=== PATIENT | female | born 1960 | race American Indian/Alaskan Native ===

== ENCOUNTER 2020-08-13 17:31 | Observation (INO) | payer MEDICARE ==
--- NOTE | 2020-08-13 18:13 | Emergency Department Report ---
HPI - General Chief Complaint: Dyspnea/Respdistress Time Seen by Provider: 08/13/20 17:56 - HPI HPI: This is a 60-year-old -[place] female presents to the emergency department via EMS from home with complaint of shortness of breath, a mixed dry and productive cough, some mild lower extremity swelling, that has been going on over the past few days but worsened this morning. The patient called EMS 3 different times but previously refused transfer to the emergency department. This afternoon, when EMS arrived, they found the patient to have a room air pulse ox of 85%. She was placed on a nonrebreather. Upon arrival here, the patient was 86% on room air and once again was placed on the nonrebreather. She has a history of COPD but is not oxygen dependent. She has a history of end- stage renal disease on peritoneal dialysis that she says she does 3 times daily. Her digital assistant is a Dr. Hawk. She has a history of hypertension and CHF. She is a former smoker. She has been using her nebulizer and inhaler at home without any relief. No recent travel or sick contacts at home. She denies any fever, chest pain, nausea, vomiting or diaphoresis. No known exposure to anyone with COVID-19. EMS gave her 2 mg of magnesium and 10 mg of Decadron in route. ED Past Medical Hx - Social History Smoking Status: Former Smoker Substance Use Type: None ED Review of Systems ROS: Stated complaint: SOB,RESP ISSUES Other details as noted in HPI Comment: All other systems reviewed and negative Constitutional: denies: chills, fever Eyes: denies: eye pain, vision change ENT: denies: ear pain, throat pain Respiratory: cough, shortness of breath Cardiovascular: edema. denies: chest pain Gastrointestinal: denies: abdominal pain, vomiting Genitourinary: denies: dysuria, discharge Musculoskeletal: denies: joint swelling, arthralgia Skin: denies: rash, lesions Neurological: denies: headache, weakness Physical Exam - Physical Exam Vital Signs: Vital Signs 08/13/20 17:54 Temperature 97.9 F Pulse Rate 106 H Respiratory 25 H Rate Blood Pressure 157/103 O2 Sat by Pulse 100 Oximetry Physical Exam: GENERAL: The patient is well-developed well-nourished. HENT: Normocephalic. Atraumatic. Patient has moist mucous membranes. EYES: Extraocular motions are intact. NECK: Supple. Trachea is midline. CHEST/LUNGS: There is mild wheezing throughout the chest. Mild tachypnea but no accessory muscle use. HEART/CARDIOVASCULAR: Regular. There is mild tachycardia. There is no murmur. ABDOMEN: Abdomen is soft, nontender. Patient has normal bowel sounds. SKIN: Skin is warm and dry. NEURO: The patient is awake, alert, and oriented. The patient is cooperative. The patient has no focal neurologic deficits. Normal speech. MUSCULOSKELETAL: There is no tenderness or deformity. ED Course Vital Signs 08/13/20 17:54 Temperature 97.9 F Pulse Rate 106 H Respiratory 25 H Rate Blood Pressure 157/103 O2 Sat by Pulse 100 Oximetry - Reevaluation(s) Reevaluation #1: 08/14/20 00:45 Lab Results 08/13/20 08/13/20 08/13/20 Range/Units 18:20 18:21 18:21 WBC 9.9 (4.5-11.0) K/mm3 RBC 4.00 (3.65-5.03) M/mm3 Hgb 12.4 (10.1-14.3) gm/dl Hct 38.2 (30.3-42.9) % MCV 96 (79-97) fl MCH 31 (28-32) pg MCHC 33 (30-34) % RDW 17.1 H (13.2-15.2) % Plt Count 212 (140-440) K/mm3 Lymph % (Auto) 5.2 L (13.4-35.0) % [place] % (Auto) 2.9 (0.0-7.3) % Eos % (Auto) 3.1 (0.0-4.3) % Baso % (Auto) 0.5 (0.0-1.8) % Lymph # (Auto) 0.5 L (1.2-5.4) K/mm3 [place] # (Auto) 0.3 (0.0-0.8) K/mm3 Eos # (Auto) 0.3 (0.0-0.4) K/mm3 Baso # (Auto) 0.0 (0.0-0.1) K/mm3 Seg Neutrophils % 88.3 H (40.0-70.0) % Seg Neutrophils # 8.8 H (1.8-7.7) K/mm3 PT (12.2-14.9) Sec. INR (0.87-1.13) D-Dimer (0-234) ng/mlDDU ABG pH 7.378 (7.350-7.450) pH Units ABG pCO2 41.4 mm Hg ABG pO2 64.4 L (80.0-90.0) mm Hg ABG HCO3 23.8 (20.0-26.0) mmol/L ABG O2 Saturation 92.5 L (95.0-99.0) % ABG O2 Content 15.7 (0.0-44) ABG Base Excess -1.3 (-2.0-3.0) mmol/L ABG Hemoglobin 12.3 (12.0-16.0) gm/dl ABG Carboxyhemoglobin 1.7 (0.0-5.0) % ABG Methemoglobin 0.5 (0.0-1.5) % Oxyhemoglobin 90.4 L (95.0-99.0) % FiO2 21 % Sodium 138 (137-145) mmol/L Potassium 3.8 (3.6-5.0) mmol/L Chloride 97.2 L (98-107) mmol/L Carbon Dioxide 23 (22-30) mmol/L Anion Gap 22 mmol/L BUN 54 H (7-17) mg/dL Creatinine 11.0 H (0.6-1.2) mg/dL Estimated GFR 4 ml/min BUN/Creatinine Ratio 5 % Glucose 153 H (65-100) mg/dL Calcium 7.8 L (8.4-10.2) mg/dL Total Bilirubin 0.30 (0.1-1.2) mg/dL AST 25 (5-40) units/L ALT 10 (7-56) units/L Alkaline Phosphatase 100 (35-129) units/L NT-Pro-B Natriuret Pep (0-900) pg/mL Total Protein 6.7 (6.3-8.2) g/dL Albumin 3.5 L (3.9-5) g/dL Albumin/Globulin Ratio 1.1 % 08/13/20 08/13/20 08/13/20 Range/Units 18:21 18:21 18:21 WBC (4.5-11.0) K/mm3 RBC (3.65-5.03) M/mm3 Hgb (10.1-14.3) gm/dl Hct (30.3-42.9) % MCV (79-97) fl MCH (28-32) pg MCHC (30-34) % RDW (13.2-15.2) % Plt Count (140-440) K/mm3 Lymph % (Auto) (13.4-35.0) % [place] % (Auto) (0.0-7.3) % Eos % (Auto) (0.0-4.3) % Baso % (Auto) (0.0-1.8) % Lymph # (Auto) (1.2-5.4) K/mm3 [place] # (Auto) (0.0-0.8) K/mm3 Eos # (Auto) (0.0-0.4) K/mm3 Baso # (Auto) (0.0-0.1) K/mm3 Seg Neutrophils % (40.0-70.0) % Seg Neutrophils # (1.8-7.7) K/mm3 PT 13.1 (12.2-14.9) Sec. INR 1.01 (0.87-1.13) D-Dimer 813.32 H (0-234) ng/mlDDU ABG pH (7.350-7.450) pH Units ABG pCO2 mm Hg ABG pO2 (80.0-90.0) mm Hg ABG HCO3 (20.0-26.0) mmol/L ABG O2 Saturation (95.0-99.0) % ABG O2 Content (0.0-44) ABG Base Excess (-2.0-3.0) mmol/L ABG Hemoglobin (12.0-16.0) gm/dl ABG Carboxyhemoglobin (0.0-5.0) % ABG Methemoglobin (0.0-1.5) % Oxyhemoglobin (95.0-99.0) % FiO2 % Sodium (137-145) mmol/L Potassium (3.6-5.0) mmol/L Chloride (98-107) mmol/L Carbon Dioxide (22-30) mmol/L Anion Gap mmol/L BUN (7-17) mg/dL Creatinine (0.6-1.2) mg/dL Estimated GFR ml/min BUN/Creatinine Ratio % Glucose (65-100) mg/dL Calcium (8.4-10.2) mg/dL Total Bilirubin (0.1-1.2) mg/dL AST (5-40) units/L ALT (7-56) units/L Alkaline Phosphatase (35-129) units/L NT-Pro-B Natriuret Pep 39072 H (0-900) pg/mL Total Protein (6.3-8.2) g/dL Albumin (3.9-5) g/dL Albumin/Globulin Ratio % - ABG Interpretation Ph: 7.378 PCO2: 41 PO2: 64 Bicarbonate: 25 Interpretation: other (hypoxemia) - Pulse Oximetry Interpretation Digit-Finger Initial Pulse Oximetry Readin O2 Sat by Pulse Oximetry: 86 Actions Taken: other (initially moved to NRB and later down to 24% (2L NC)) ED Medical Decision Making - Lab Data Result diagrams: 08/13/20 18:21 08/13/20 18:21 - EKG Data -: EKG Interpreted by Me EKG shows normal: sinus rhythm, axis, intervals (Slight prolongation of QTC), QRS complexes (LVH, Q waves to the anteroseptal leads), ST-T waves Rate: tachycardia (112 bpm) - EKG Data When compared to previous EKG there are: previous EKG unavailable Interpretation: other (Sinus tachycardia at 112 bpm, normal axis, slight prolongation of QTC, Q waves to the anteroseptal leads. No ST elevation myocardial infarction.) - Radiology Data Radiology results: report reviewed, image reviewed interpreted by me: Chest x-ray shows some hyperinflation of the lungs and flattening of the diaphragms. No obvious pneumonia, pleural effusions. No pneumothorax. Perfusion Scan HISTORY: SOB, elevated dimer. TECHNIQUE: Patient was given 5 mCi of technetium MAA. COMPARISON: Chest x-ray from today FINDINGS: Somewhat patchy radiotracer uptake but there is no large photopenic defect identified. There is perfusion in all lobes of the lungs. IMPRESSION: Maintained perfusion in all lobes of the lungs. - Medical Decision Making This patient presented to the emergency department with a complaint of a 1 to 2- day history of progressively worsening shortness of breath, a mixed dry and productive cough, and some lower extremity swelling. Patient was hypoxic for both EMS, as well as during our triage, while on room air. An ABG was done that shows some hypoxemia, but no significant hypercapnia or any acid-base disturbance. Chest x-ray appears consistent with her COPD, but does not show any obvious pneumonia, pleural effusions and there is no pneumothorax. The patient's labs shows renal insufficiency consistent with her end-stage renal disease on peritoneal dialysis. She has an elevated proBNP and troponin level, that is most likely secondary to her chronic kidney disease/ESRD. The patient had an elevated D-dimer level, and with her shortness of breath and hypoxia, a ventilation/perfusion scan was performed that came back showing maintain per fusion and low probability of a pulmonary embolism. The patient received magnesium and Solu-Medrol in route with EMS. She was given breathing treatments here, as well as antihypertensive medication. Patient was tested on room air multiple times and continues to desat. She is not oxygen dependent at home. She will be admitted to the hospital for further evaluation and treatment was accepted for admission by the hospitalist, Dr. Martinez. Critical Care Time: Yes Critical care time in (mins) excluding proc time.: 35 Critical care attestation.: If time is entered above; I have spent that time in minutes in the direct care of this critically ill patient, excluding procedure time. Critical care time was spent on this patient in doing her initial evaluation, multiple reevaluations, ordering and interpretation of labs and imaging, nebulizer treatments, supplemental oxygen for hypoxemia, discussion with the hospitalist service and multiple discussions with the patient herself. Critical Care Time: 35 minutes ED Disposition Clinical Impression: Dyspnea, COPD exacerbation, Hypoxemia, Hypertension Disposition: OP ADMIT IP TO THIS HOSP Is pt being admited?: Yes Condition: Serious Time of Disposition: 23:02
--- NOTE | 2020-08-13 18:19 | XRay Report ---
. XR chest 1V ap INDICATION / CLINICAL INFORMATION: SOB. COMPARISON: None available. FINDINGS: SUPPORT DEVICES: None. HEART /PULMONARY VASCULATURE: No significant abnormality. LUNGS / PLEURA: There is blunting of bilateral costophrenic sulci, may reflect trace pleural effusion s or pleural thickening/scarring. No focal airspace consolidation. No pneumothorax. ADDITIONAL FINDINGS: No significant additional findings. IMPRESSION: Trace bibasilar pleural fluid and/or pleural thickening/scarring. Otherwise, no acute chest process i dentified. Signer Name: Aditya Knapp MD Signed: 08/13/2020 6:15 PM Workstation Name: [id number]
[2020-08-13 18:36] LABS: ABG Base Excess -1.3 mmol/L (-2.0-3.0); ABG HCO3 23.8 mmol/L (20.0-26.0); ABG Methemoglobin 0.5 % (0.0-1.5); ABG Oxygen Saturation 92.5 % (95.0-99.0); ABG PCO2 41.4 mm Hg; ABG PH 7.378 pH Units (7.350-7.450); ABG PO2 64.4 mm Hg (80.0-90.0)
[2020-08-13 18:55] LABS: Basophils % (Auto) 0.5 % (0.0-1.8); Eosinophils # (Auto) 0.3 K/mm3 (0.0-0.4); Eosinophils % (Auto) 3.1 % (0.0-4.3); Hematocrit 38.2 % (30.3-42.9); Hemoglobin 12.4 gm/dl (10.1-14.3); Lymphocytes # (Auto) 0.5 K/mm3 (1.2-5.4); Lymphocytes % (Auto) 5.2 % (13.4-35.0); Mean Corpuscular HGB Conc 33 % (30-34); Mean Corpuscular Volume 96 fl (79-97); Monocytes # (Auto) 0.3 K/mm3 (0.0-0.8); Monocytes % (Auto) 2.9 % (0.0-7.3); Platelet Count 212 K/mm3 (140-440); Red Cell Distribution Width 17.1 % (13.2-15.2)
[2020-08-13 18:56] LABS: Albumin 3.5 g/dL (3.9-5); Calcium 7.8 mg/dL (8.4-10.2)
[2020-08-13 19:03] LABS: INR 1.01 (0.87-1.13)
[2020-08-13] MEDS ORDERED: hydrALAZINE 20 MG/1 ML INJ IV ONE (19:19)
[2020-08-13] MEDS ORDERED: IPRATROPIUM/ALBUTEROL SULFATE 3 ML AMPUL.NEB IH ONE (19:19)
[2020-08-13 21:01] LABS: Chol/HDL Ratio 3.2 %
--- NOTE | 2020-08-13 22:28 | Nuclear Medicine Report ---
Perfusion Scan HISTORY: SOB, elevated dimer. TECHNIQUE: Patient was given 5 mCi of technetium MAA. COMPARISON: Chest x-ray from today FINDINGS: Somewhat patchy radiotracer uptake but there is no large photopenic defect identified. The re is perfusion in all lobes of the lungs. IMPRESSION: Maintained perfusion in all lobes of the lungs. Signer Name: Reji Hidalgo MD Signed: 08/13/2020 10:23 PM Workstation Name: [id number]
[2020-08-13] MEDS ORDERED: ONDANSETRON 4 MG/2 ML INJ IV PRN (23:57)
[2020-08-13] MEDS ORDERED: ACETAMINOPHEN 325 MG TAB PO PRN (23:57)
--- NOTE | 2020-08-14 00:06 | History and Physical Report ---
History of Present Illness Date of examination: 08/13/20 Date of admission: 08/13/20 23:03 Chief complaint: Shortness of Breath History of present illness: 60-year-old female with known history of CHF, hypertension, COPD and end-stage renal disease on peritoneal dialysis at home presenting to the emergency room today complaining of shortness of breath, cough and lower extremity swelling. Symptoms were said to have started a few days ago but got worse this morning. Patient was brought into the emergency room by EMS and was found to be hypoxic with oxygen saturation of 85% on room air. She was subsequently placed on nonrebreather. She has been using her nebulizer at home without any significant improvement. Upon arrival in the emergency room patient's oxygen saturation was said to be about 86%. She is not on oxygen at home. Patient denies any fever or chills, no chest pain, no nausea vomiting, no headache or dizziness. She denies any recent travel and no sick contacts. She denies any contact with anyone with COVID-19. Patient follows up with her building carpenter -Dr. Hawk Work-up in the emergency room patient had an elevated D-dimer. Chest x-ray and CT angiogram were unremarkable. She has been admitted with COPD exacerbation with hypoxia. Past History Past Medical History: COPD, dialysis, ESRD Past Surgical History: Other (Peritoneal dialysis placement) Social history: smoking (Former smoker) Family history: no significant family history Medications and Allergies Allergies Allergy/AdvReac Type Severity Reaction Status Date / Time No Known Allergies Allergy Unverified 08/13/20 18:18 Active Meds: Active Medications Acetaminophen (Tylenol) 650 mg PO Q4H PRN PRN Reason: Pain MILD(1-3)/Fever >100.5/BAZZI Albuterol/Ipratropium (Duoneb *Not For Prn Use*) 1 ampul IH Q4HRT [facility] Bisacodyl (Dulcolax) 10 mg IA QDAY PRN PRN Reason: Constipation unrelieved by MOM Methylprednisolone Sodium Succinate (Solu-Medrol) 40 mg IV Q8HR [facility] Ondansetron HCl (Zofran) 4 mg IV Q8H PRN PRN Reason: Nausea And Vomiting Sodium Chloride (Sodium Chloride Flush Syringe 10 Ml) 10 ml IV BID EMM[facility] Sodium Chloride (Sodium Chloride Flush Syringe 10 Ml) 10 ml IV PRN PRN PRN Reason: LINE FLUSH Review of Systems Constitutional: no fever, no chills, no fatigue, no lethargy Breasts: no deferred Cardiovascular: no chest pain, no palpitations Respiratory: cough, shortness of breath, wheezing Gastrointestinal: no abdominal pain, no nausea, no vomiting, no diarrhea Genitourinary Female: pelvic pain Musculoskeletal: no neck pain, no low back pain Integumentary: no rash, no pruritis Neurological: no headaches, no confusion Exam - Constitutional Vitals: Temp Pulse Resp BP Pulse Ox 97.9 F 108 H 21 163/117 99 08/13/20 17:54 08/13/20 22:45 08/13/20 22:45 08/13/20 22:45 08/13/20 22:45 General appearance: Present: no acute distress, well-nourished, other (Mild Pallor) - EENT Eyes: Present: PERRL, EOM intact. Absent: scleral icterus ENT: hearing intact, clear oral mucosa, dentition normal - Neck Neck: Present: supple, normal ROM - Respiratory Respiratory effort: normal Respiratory: bilateral: wheezing - Cardiovascular Rhythm: regular Heart Sounds: Present: S1 & S2. Absent: gallop, systolic murmur, diastolic murmur, rub - Extremities Extremities: no ischemia, pulses intact, pulses symmetrical, No edema, normal temperature, normal color, Full ROM Peripheral Pulses: within normal limits - Abdominal General gastrointestinal: Present: soft, non-tender, non-distended, normal bowel sounds. Absent: mass - Integumentary Integumentary: Present: clear, warm, dry. Absent: rash - Musculoskeletal Musculoskeletal: strength equal bilaterally - Psychiatric Psychiatric: appropriate mood/affect, intact judgment & insight, memory intact, cooperative HEART Score - HEART Score Troponin: Troponin T 0.174 ng/mL (0.00-0.029) H* 08/13/20 Unknown Results - Labs CBC & Chem 7: 08/13/20 18:21 08/13/20 18:21 Labs: Abnormal lab results 08/13/20 08/13/20 08/13/20 Range/Units 18:20 18:21 18:21 RDW 17.1 H (13.2-15.2) % Lymph % (Auto) 5.2 L (13.4-35.0) % Lymph # (Auto) 0.5 L (1.2-5.4) K/mm3 Seg Neutrophils % 88.3 H (40.0-70.0) % Seg Neutrophils # 8.8 H (1.8-7.7) K/mm3 D-Dimer (0-234) ng/mlDDU ABG pO2 64.4 L (80.0-90.0) mm Hg ABG O2 Saturation 92.5 L (95.0-99.0) % Oxyhemoglobin 90.4 L (95.0-99.0) % Chloride 97.2 L (98-107) mmol/L BUN 54 H (7-17) mg/dL Creatinine 11.0 H (0.6-1.2) mg/dL Glucose 153 H (65-100) mg/dL Calcium 7.8 L (8.4-10.2) mg/dL Troponin T (0.00-0.029) ng/mL NT-Pro-B Natriuret Pep (0-900) pg/mL Albumin 3.5 L (3.9-5) g/dL Cholesterol (50-199) mg/dL LDL Cholesterol Direct (50-130) mg/dL HDL Cholesterol (40-59) mg/dL 08/13/20 08/13/20 08/13/20 Range/Units 18:21 18:21 Unknown RDW (13.2-15.2) % Lymph % (Auto) (13.4-35.0) % Lymph # (Auto) (1.2-5.4) K/mm3 Seg Neutrophils % (40.0-70.0) % Seg Neutrophils # (1.8-7.7) K/mm3 D-Dimer 813.32 H (0-234) ng/mlDDU ABG pO2 (80.0-90.0) mm Hg ABG O2 Saturation (95.0-99.0) % Oxyhemoglobin (95.0-99.0) % Chloride (98-107) mmol/L BUN (7-17) mg/dL Creatinine (0.6-1.2) mg/dL Glucose (65-100) mg/dL Calcium (8.4-10.2) mg/dL Troponin T 0.174 H* (0.00-0.029) ng/mL NT-Pro-B Natriuret Pep 95819 H (0-900) pg/mL Albumin (3.9-5) g/dL Cholesterol 247 H (50-199) mg/dL LDL Cholesterol Direct 153 H (50-130) mg/dL HDL Cholesterol 77 H (40-59) mg/dL Assessment and Plan - Patient Problems (1) COPD exacerbation Current Visit: Yes Status: Acute Plan to address problem: Patient placed on nebulizing treatments. Also placed on IV steroid. We will keep oxygen saturation greater equal to 94%. Patient may require evaluation for oxygen at home prior to discharge. (2) Hypertension Current Visit: Yes Status: Acute Plan to address problem: We will resume routine home medications and monitor vital signs closely. (3) End-stage renal disease on peritoneal dialysis Current Visit: Yes Status: Acute Plan to address problem: We will place a consult to nephrology for evaluation during this admission. (4) DVT prophylaxis Current Visit: Yes Status: Acute Plan to address problem: Patient placed on subcutaneous heparin. (5) Full code status Current Visit: Yes Status: Acute
[2020-08-14] MEDS: IPRATROPIUM/ALBUTEROL SULFATE 3 ML AMPUL.NEB IH SCH ×7 (05:22→21:17)
[2020-08-14] MEDS: methylPREDNISolone Sod Succinate 40 MG/1 ML INJ IV SCH ×3 (06:19→21:54)
--- NOTE | 2020-08-14 09:23 | Consultation ---
History of Present Illness - Reason for Consult Consult date: 08/14/20 end stage renal disease Requesting physician: JEISON PAULINO - History of Present Illness 60-year-old female with known history of CHF, hypertension, COPD and end-stage renal disease on peritoneal dialysis at home presenting to the emergency room last night complaining of shortness of breath, cough and lower extremity swelling. Symptoms were said to have started a few days ago but got worse this morning. Patient was brought into the emergency room by EMS and was found to be hypoxic with oxygen saturation of 85% on room air. She was subsequently placed on nonrebreather. She has been using her nebulizer at home without any significant improvement. Upon arrival in the emergency room patient's oxygen saturation was said to be about 86%. She is not on oxygen at home. Patient denies any fever or chills, no chest pain, no nausea vomiting, no headache or dizziness. She denies any recent travel and no sick contacts. She denies any contact with anyone with COVID-19. Patient follows up with her electronics design engineer -Dr. Hawk Work-up in the emergency room patient had an elevated D-dimer. Chest x-ray and CT angiogram were unremarkable. She has been admitted with COPD exacerbation with hypoxia. Renal consult is requested for management of ESRD. Past History Past Medical History: COPD, dialysis, ESRD Past Surgical History: Other (Peritoneal dialysis placement) Social history: smoking (Former smoker) Family history: no significant family history Medications and Allergies Allergies Allergy/AdvReac Type Severity Reaction Status Date / Time No Known Allergies Allergy Unverified 08/13/20 18:18 Active Meds: Active Medications Acetaminophen (Tylenol) 650 mg PO Q4H PRN PRN Reason: Pain MILD(1-3)/Fever >100.5/BAZZI Albuterol/Ipratropium (Duoneb *Not For Prn Use*) 1 ampul IH Q4HRT [facility] Last Admin: 08/14/20 08:24 Dose: 1 ampul Documented by: Bisacodyl (Dulcolax) 10 mg LA QDAY PRN PRN Reason: Constipation unrelieved by MOM Methylprednisolone Sodium Succinate (Solu-Medrol) 40 mg IV Q8HR [facility] Last Admin: 08/14/20 06:19 Dose: 40 mg Documented by: Ondansetron HCl (Zofran) 4 mg IV Q8H PRN PRN Reason: Nausea And Vomiting Sodium Chloride (Sodium Chloride Flush Syringe 10 Ml) 10 ml IV BID EMMANUEL Sodium Chloride (Sodium Chloride Flush Syringe 10 Ml) 10 ml IV PRN PRN PRN Reason: LINE FLUSH Last Admin: 08/14/20 06:20 Dose: 10 ml Documented by: Review of Systems All systems: negative (Negative except as noted above) Exam - Vital Signs Vital signs: Vital Signs Temp Pulse Resp BP Pulse Ox 97.9 F 106 H 25 H 157/103 100 08/13/20 17:54 08/13/20 17:54 08/13/20 17:54 08/13/20 17:54 08/13/20 17:54 - General Appearance General appearance: well-developed, well-nourished, appears stated age EENT: PERRL, mucous membranes moist Neck: Present: neck supple, trachea midline. Absent: JVD/HJR, Masses Respiratory: Wheezes (Bilateral wheezing) Heart: regular, normal heart rate, S1S2, no murmurs Gastrointestinal: Present: normal, normoactive bowel sounds, other (PD catheter in place. Exit site is normal. No tenderness over the catheter.) Integumentary: no rash, other (No edema) Results - Lab Results 08/13/20 18:21 08/13/20 18:21 Most recent lab results ABG pH 7.378 pH Units (7.350-7.450) 08/13/20 18:20 ABG pCO2 41.4 mm Hg 08/13/20 18:20 ABG pO2 64.4 mm Hg (80.0-90.0) L 08/13/20 18:20 ABG HCO3 23.8 mmol/L (20.0-26.0) 08/13/20 18:20 ABG O2 Saturation 92.5 % (95.0-99.0) L 08/13/20 18:20 Calcium 7.8 mg/dL (8.4-10.2) L 08/13/20 18:21 Assessment and Plan Impression * End-stage renal disease on maintenance peritoneal dialysis * COPD exacerbation * Hypertension * Hyperparathyroidism Recommendations * Resume CAPD * Management of COPD as per primary team * No indication for Epogen at this time * Avoid nephrotoxins * Binders with meals * Adjust diet and meds for ESRD state * Thank you very much for the consultation. Shall follow along with you
[2020-08-14] MEDS: [UNRECOGNIZED DRUG - OTHER] IP SCH ×3 (16:31→23:34)
--- NOTE | 2020-08-14 19:51 | Progress Note ---
Assessment and Plan Assessment and plan: --Acute exacerbation of COPD Current Visit: Yes Status: Acute Plan to address problem: Patient placed on nebulizing treatments. Also placed on IV steroid. We will keep oxygen saturation greater equal to 94%. Patient may require evaluation for oxygen at home prior to discharge. --Hypertension Current Visit: Yes Status: Acute Plan to address problem: We will resume routine home medications and monitor vital signs closely. -- End-stage renal disease on peritoneal dialysis Current Visit: Yes Status: Acute Plan to address problem: We will place a consult to nephrology for evaluation during this admission. --DVT prophylaxis Current Visit: Yes Status: Acute Plan to address problem: Patient placed on subcutaneous heparin. --Full code status Current Visit: Yes Status: Acute Closely monitor patient and adjust management as needed Nephrology evaluation recommendation noted and appreciated History Interval history: Patient feels slightly better Admitted with acute exacerbation of COPD Also has history of end-stage renal disease on peritoneal dialysis Patient's vital signs reviewed Hospitalist Physical - Constitutional Vitals: Temp Pulse Resp BP Pulse Ox 98.1 F 98 H 18 154/99 97 08/14/20 17:05 08/14/20 17:05 08/14/20 17:05 08/14/20 17:05 08/14/20 17:05 General appearance: Present: no acute distress, well-nourished, other (Cachectic emaciated) - EENT Eyes: Present: PERRL, EOM intact - Neck Neck: Present: supple, normal ROM - Respiratory Respiratory effort: normal Respiratory: bilateral: diminished, rhonchi, negative: rales, wheezing - Cardiovascular Rhythm: regular Heart Sounds: Present: S1 & S2 - Extremities Extremities: no ischemia, No edema - Abdominal General gastrointestinal: soft, non-tender, non-distended, normal bowel sounds - Integumentary Integumentary: Present: clear, warm - Psychiatric Psychiatric: appropriate mood/affect, cooperative - Neurologic Neurologic: moves all extremities HEART Score - HEART Score Troponin: Troponin T 0.174 ng/mL (0.00-0.029) H* 08/13/20 Unknown Results - Labs CBC & Chem 7: 08/13/20 18:21 08/13/20 18:21 Labs: Laboratory Last Values WBC 9.9 K/mm3 (4.5-11.0) 08/13/20 18:21 RBC 4.00 M/mm3 (3.65-5.03) 08/13/20 18:21 Hgb 12.4 gm/dl (10.1-14.3) 08/13/20 18:21 Hct 38.2 % (30.3-42.9) 08/13/20 18:21 MCV 96 fl (79-97) 08/13/20 18:21 MCH 31 pg (28-32) 08/13/20 18:21 MCHC 33 % (30-34) 08/13/20 18:21 RDW 17.1 % (13.2-15.2) H 08/13/20 18:21 Plt Count 212 K/mm3 (140-440) 08/13/20 18:21 Lymph % (Auto) 5.2 % (13.4-35.0) L 08/13/20 18:21 Gila % (Auto) 2.9 % (0.0-7.3) 08/13/20 18:21 Eos % (Auto) 3.1 % (0.0-4.3) 08/13/20 18:21 Baso % (Auto) 0.5 % (0.0-1.8) 08/13/20 18:21 Lymph # (Auto) 0.5 K/mm3 (1.2-5.4) L 08/13/20 18:21 Gila # (Auto) 0.3 K/mm3 (0.0-0.8) 08/13/20 18:21 Eos # (Auto) 0.3 K/mm3 (0.0-0.4) 08/13/20 18:21 Baso # (Auto) 0.0 K/mm3 (0.0-0.1) 08/13/20 18:21 Seg Neutrophils % 88.3 % (40.0-70.0) H 08/13/20 18:21 Seg Neutrophils # 8.8 K/mm3 (1.8-7.7) H 08/13/20 18:21 PT 13.1 Sec. (12.2-14.9) 08/13/20 18:21 INR 1.01 (0.87-1.13) 08/13/20 18:21 D-Dimer 813.32 ng/mlDDU (0-234) H 08/13/20 18:21 ABG pH 7.378 pH Units (7.350-7.450) 08/13/20 18:20 ABG pCO2 41.4 mm Hg 08/13/20 18:20 ABG pO2 64.4 mm Hg (80.0-90.0) L 08/13/20 18:20 ABG HCO3 23.8 mmol/L (20.0-26.0) 08/13/20 18:20 ABG O2 Saturation 92.5 % (95.0-99.0) L 08/13/20 18:20 ABG O2 Content 15.7 (0.0-44) 08/13/20 18:20 ABG Base Excess -1.3 mmol/L (-2.0-3.0) 08/13/20 18:20 ABG Hemoglobin 12.3 gm/dl (12.0-16.0) 08/13/20 18:20 ABG Carboxyhemoglobin 1.7 % (0.0-5.0) 08/13/20 18:20 ABG Methemoglobin 0.5 % (0.0-1.5) 08/13/20 18:20 Oxyhemoglobin 90.4 % (95.0-99.0) L 08/13/20 18:20 FiO2 21 % 08/13/20 18:20 Sodium 138 mmol/L (137-145) 08/13/20 18:21 Potassium 3.8 mmol/L (3.6-5.0) 08/13/20 18:21 Chloride 97.2 mmol/L (98-107) L 08/13/20 18:21 Carbon Dioxide 23 mmol/L (22-30) 08/13/20 18:21 Anion Gap 22 mmol/L 08/13/20 18:21 BUN 54 mg/dL (7-17) H 08/13/20 18:21 Creatinine 11.0 mg/dL (0.6-1.2) H 08/13/20 18:21 Estimated GFR 4 ml/min 08/13/20 18:21 BUN/Creatinine Ratio 5 % 08/13/20 18:21 Glucose 153 mg/dL (65-100) H 08/13/20 18:21 Calcium 7.8 mg/dL (8.4-10.2) L 08/13/20 18:21 Total Bilirubin 0.30 mg/dL (0.1-1.2) 08/13/20 18:21 AST 25 units/L (5-40) 08/13/20 18:21 ALT 10 units/L (7-56) 08/13/20 18:21 Alkaline Phosphatase 100 units/L (35-129) 08/13/20 18:21 Troponin T 0.174 ng/mL (0.00-0.029) H* 08/13/20 Unknown NT-Pro-B Natriuret Pep 13243 pg/mL (0-900) H 08/13/20 18:21 Total Protein 6.7 g/dL (6.3-8.2) 08/13/20 18:21 Albumin 3.5 g/dL (3.9-5) L 08/13/20 18:21 Albumin/Globulin Ratio 1.1 % 08/13/20 18:21 Triglycerides 133 mg/dL (2-149) 08/13/20 Unknown Cholesterol 247 mg/dL (50-199) H 08/13/20 Unknown LDL Cholesterol Direct 153 mg/dL (50-130) H 08/13/20 Unknown HDL Cholesterol 77 mg/dL (40-59) H 08/13/20 Unknown Cholesterol/HDL Ratio 3.20 % 08/13/20 Unknown Engel/IV: Voiding Method Incontinent IV Catheter Type [Right INT / Saline Lock Forearm] Active Medications - Current Medications Current Medications: Generic Name Dose Route Start Last Admin Trade Name Freq PRN Reason Stop Dose Admin Acetaminophen 650 mg 08/13/20 23:57 Tylenol PO Q4H PRN Pain MILD(1-3)/Fever >100.5/BAZZI Albuterol/Ipratropium 1 ampul 08/14/20 00:00 08/14/20 13:43 Duoneb *Not For Prn Use* IH 1 ampul Q4HRT EMMANUEL Administration Bisacodyl 10 mg 08/13/20 23:57 Dulcolax LA QDAY PRN Constipation unrelieved by MOM Methylprednisolone Sodium Succinate 40 mg 08/14/20 06:00 08/14/20 14:16 Solu-Medrol IV 40 mg Q8HR EMMANUEL Administration Ondansetron HCl 4 mg 08/13/20 23:57 Zofran IV Q8H PRN Nausea And Vomiting Peritoneal Dialysis Solution 2,000 ml 08/14/20 12:00 08/14/20 16:31 Dianeal Pd-2 W/2.5% Dextrose IP 2,000 ml Q6HR EMMANUEL Administration Sodium Chloride 10 ml 08/14/20 10:00 08/14/20 11:16 Sodium Chloride Flush Syringe 10 Ml IV 10 ml BID EMMANUEL Administration Sodium Chloride 10 ml 08/13/20 23:57 08/14/20 06:20 Sodium Chloride Flush Syringe 10 Ml IV 10 ml PRN PRN Administration LINE FLUSH Nutrition/Malnutrition Assess - Dietary Evaluation Nutrition/Malnutrition Findings: Nutrition Notes Start: 08/14/20 13:40 Freq: Status: Active Protocol: Document 08/14/20 13:41 CW (Rec: 08/14/20 13:44 CW [email or web address]) Co-Sign 08/14/20 13:41 LM Nutrition Notes Need for Assessment generated from: Low BMI Initial or Follow up Assessment Current Diagnosis CKD (stage V CKD),COPD, Hypertension,Heart Failure Current Diet Cardiac diet Labs/Tests BUN 54 Cr 11.0 BG 153 TC 247 LDL 153 HDL 77 Pertinent Medications Solu-medrol Height 5 ft 2 in Weight 40.823 kg Castella Body Weight (kg) 50.00 BMI 16.5 Weight Status Underweight Subjective/Other Information Pt with COVID symptoms per physical assessment. Nurse reports pt appetite in the hospital has been consistant. Nurse reports pt diet at home consist of eggs and rice and does not like to cook. Pt reports previous negative COVID test at [facility]. Burn Absent Trauma Absent GI Symptoms Diarrhea Minimum of two criteria No physical signs of malnutrition #1 Nutrition Diagnosis Underweight Etiology ESRD and COPD As Evidenced by Signs and Symptoms Pt reported limited diet of rice and eggs and low BMI of 16.5 Is patient on ventilator? No Is Patient Ambulatory and/or Out of Bed No REE-([place]-confined to bed) 1134.852 Kcal/Kg value to use for calculation 34 Approximate Energy Requirements Using 1388 kcal/Kg Calculation Used for Recommendations Kcal/kg Additional Notes Protein needs are 1.2-1.3g/kg 48g-52g/day Fluid needs urine output + 1000ml Nutrition Intervention Change Diet Order: Continue Add Supplement/Snack (indicate name/kcal Nepro daily /protein ) Provides kCal: 425 Provides Protein (gm) 19 Goal #1 Meet 80% of protein and energy needs via cardiac diet Anticipated Discharge Needs: Unable to determine at this time Follow-Up By: 08/15/20 Additional Comments FU for nutrition education needs, labs, intakes
[2020-08-15] MEDS ORDERED: ALBUTEROL 2.5 MG/3 ML NEBU IH PRN (00:16)
[2020-08-15] MEDS: methylPREDNISolone Sod Succinate 40 MG/1 ML INJ IV SCH ×2 (05:39→13:23)
[2020-08-15 06:06] LABS: Basophils % (Auto) 0.1 % (0.0-1.8); Hematocrit 30.8 % (30.3-42.9); Hemoglobin 10.2 gm/dl (10.1-14.3); Lymphocytes # (Auto) 0.3 K/mm3 (1.2-5.4); Lymphocytes % (Auto) 8.5 % (13.4-35.0); Mean Corpuscular HGB Conc 33 % (30-34); Mean Corpuscular Volume 93 fl (79-97); Monocytes # (Auto) 0.2 K/mm3 (0.0-0.8); Platelet Count 177 K/mm3 (140-440); Red Cell Distribution Width 16.8 % (13.2-15.2)
[2020-08-15] MEDS: [UNRECOGNIZED DRUG - OTHER] IP SCH ×2 (06:06→13:18)
[2020-08-15 06:16] LABS: INR 0.98 (0.87-1.13)
[2020-08-15 06:23] LABS: Calcium 7.4 mg/dL (8.4-10.2)
--- NOTE | 2020-08-15 09:17 | Progress Note ---
Assessment and Plan Impression * End-stage renal disease on maintenance peritoneal dialysis * COPD exacerbation * Hypertension * Hyperparathyroidism * Hypocalcemia Recommendations * Continue CAPD with all 2.5% solution. * Management of COPD as per primary team * No indication for Epogen at this time * Avoid nephrotoxins * Binders with meals * Adjust diet and meds for ESRD state * Phosphorus noted to be elevated at 6.8. She is also hypocalcemic. Add calcium acetate. PTH level is pending * Patient is stable for discharge from renal standpoint Subjective Date of service: 08/15/20 Interval history: Patient feels much better today. Shortness of breath is improved. No nausea or vomiting. CAPD going well. PD fluid is clear Objective - Vital Signs Vital signs: Vital Signs - 12hr 08/14/20 08/15/20 08/15/20 23:23 00:12 00:21 Temperature 98.6 F Pulse Rate 93 H Pulse Rate [ Apical] Respiratory 20 Rate Blood Pressure 154/100 143/92 O2 Sat by Pulse 100 97 Oximetry 08/15/20 08/15/20 08/15/20 03:00 04:54 05:54 Temperature 98.0 F Pulse Rate 85 89 Pulse Rate [ Apical] Respiratory 15 Rate Blood Pressure 140/84 137/82 O2 Sat by Pulse 96 Oximetry 08/15/20 08/15/20 07:50 08:17 Temperature 96.7 F L Pulse Rate 87 Pulse Rate [ 89 Apical] Respiratory 20 19 Rate Blood Pressure 154/100 O2 Sat by Pulse 97 96 Oximetry - General Appearance General appearance: well-developed, well-nourished, appears stated age EENT: PERRL, mucous membranes moist Neck: no JVD, no thyromegaly, no carotid bruit, supple Respiratory: Present: Clear to Ascultation Cardiology: regular, normal heart rate, S1S2, no murmurs Gastrointestinal: normal, normoactive bowel sounds, other (PD catheter in place) Integumentary: other (No edema) - Lab 08/15/20 05:30 08/15/20 05:30 Most recent lab results ABG pH 7.378 pH Units (7.350-7.450) 08/13/20 18:20 ABG pCO2 41.4 mm Hg 08/13/20 18:20 ABG pO2 64.4 mm Hg (80.0-90.0) L 08/13/20 18:20 ABG HCO3 23.8 mmol/L (20.0-26.0) 08/13/20 18:20 ABG O2 Saturation 92.5 % (95.0-99.0) L 08/13/20 18:20 Calcium 7.4 mg/dL (8.4-10.2) L 08/15/20 05:30 Phosphorus 6.80 mg/dL (2.5-4.5) H 08/15/20 05:30 Medications & Allergies - Medications Allergies/Adverse Reactions: Allergies No Known Allergies Allergy (Unverified 08/13/20 18:18) Home Medications: Home Medications Medication Instructions Recorded Confirmed Last Taken Type Albuterol Sulfate [Proair 90 mcg IH Q6H PRN 08/14/20 08/14/20 Unknown History Digihaler] Potassium Chloride [K-Dur] 20 meq PO BID 08/14/20 08/14/20 Unknown History carvediloL [Coreg] 3.125 mg PO BID 08/14/20 08/14/20 Unknown History Active Medications: Generic Name Dose Route Start Last Admin Trade Name Freq PRN Reason Stop Dose Admin Acetaminophen 650 mg 08/13/20 23:57 Tylenol PO Q4H PRN Pain MILD(1-3)/Fever >100.5/BAZZI Albuterol 2.5 mg 08/15/20 00:16 Proventil IH Q4HRT PRN Shortness Of Breath Albuterol/Ipratropium 1 ampul 08/15/20 08:00 Duoneb *Not For Prn Use* IH TIDRT EMMANUEL Bisacodyl 10 mg 08/13/20 23:57 Dulcolax [place] QDAY PRN Constipation unrelieved by MOM Methylprednisolone Sodium Succinate 40 mg 08/14/20 06:00 08/15/20 05:39 Solu-Medrol IV 40 mg Q8HR EMMANUEL Administration Ondansetron HCl 4 mg 08/13/20 23:57 Zofran IV Q8H PRN Nausea And Vomiting Peritoneal Dialysis Solution 2,000 ml 08/14/20 12:00 08/15/20 06:06 Dianeal Pd-2 W/2.5% Dextrose IP 2,000 ml Q6HR EMMANUEL Administration Sodium Chloride 10 ml 08/14/20 10:00 08/14/20 21:55 Sodium Chloride Flush Syringe 10 Ml IV 10 ml BID EMMANUEL Administration Sodium Chloride 10 ml 08/13/20 23:57 08/14/20 06:20 Sodium Chloride Flush Syringe 10 Ml IV 10 ml PRN PRN Administration LINE FLUSH
[2020-08-15] MEDS: IPRATROPIUM/ALBUTEROL SULFATE 3 ML AMPUL.NEB IH SCH ×2 (09:34→13:52)
[2020-08-15 11:49] VITALS: BP 147/98
[2020-08-15] MEDS: CALCIUM ACETATE 667 MG CAP PO SCH ×2 (13:23→16:42)
--- NOTE | 2020-08-15 14:54 | Discharge Summary ---
Providers - Providers Date of Admission: 08/14/20 09:24 Date of discharge: 08/15/20 Attending physician: JEISON PAULINO 08/13/20 23:09 Consult to Physician [CONS] Routine Comment: Consulting Provider: LAURITA PENA Physician Instructions: Reason For Exam: ESRD on peritoneal dialysis [facility] Condition: Stable Disposition: - TO HOME OR SELFCARE Time spent for discharge: 35 min Core Measure Documentation - Palliative Care Palliative Care/ Comfort Measures: Not Applicable - Core Measures Any of the following diagnoses?: none Exam - Constitutional Vitals: Temp Pulse Resp BP Pulse Ox 96.7 F L 94 H 22 147/98 100 08/15/20 07:50 08/15/20 13:53 08/15/20 13:53 08/15/20 11:47 08/15/20 11:47 General appearance: Present: no acute distress, well-nourished - EENT Eyes: Present: PERRL, EOM intact - Neck Neck: Present: supple, normal ROM - Respiratory Respiratory effort: normal Respiratory: bilateral: diminished, wheezing, negative: rales, rhonchi - Cardiovascular Rhythm: regular Heart Sounds: Present: S1 & S2 - Extremities Extremities: no ischemia, No edema - Abdominal General gastrointestinal: Present: soft, non-tender, non-distended, normal bowel sounds - Integumentary Integumentary: Present: clear, warm - Musculoskeletal Musculoskeletal: strength equal bilaterally - Psychiatric Psychiatric: appropriate mood/affect, cooperative - Neurologic Neurologic: moves all extremities Plan Activity: advance as tolerated Diet: renal Additional Instructions: Home oxygen 2 to 3 L nasal cannula as needed if you. If you have worsening symptoms contact MD or go to emergency room. Peritoneal dialysis per schedule. Advised to see private car ferry captain/lung doctor as needed [facility]Primary Care Provider[facility] - 7 Days LAURITA PENA MD [Staff Physician] - 7 Days Prescriptions: guaiFENesin/DEXTROMETHORPHAN [Mucinex Dm ER 600-30 mg Tablet] 1 each PO BID #20 tab.er.12h Azithromycin [Zithromax Z-DA] 0 mg PO DAILY #1 pack
== END 2020-08-15 17:23 | disposition home or self-care (01) ==
LOC: ED 17:31 → 4A 23:03 → OBSVTOIN 08-14 09:24 → INTOOBSV 08-14 09:24
PROVIDERS: ADMIT Internal Medicine Geriatric Medicine; ATTEND Internal Medicine
DX: J44.1 Chronic obstructive pulmonary disease with (acute) exacerbation (principal); I13.2 Hypertensive heart and chronic kidney disease with heart failure and with stage 5 chronic kidney disease, or end stage renal disease; I50.9 Heart failure, unspecified; N18.6 End stage renal disease; E21.3 Hyperparathyroidism, unspecified; R09.02 Hypoxemia; Z99.2 Dependence on renal dialysis; Z87.891 Personal history of nicotine dependence
CPT/HCPCS: 36415; 71045; 78580; 80048; 80053; 80061; 82803; 83880; 83970; 84100; 84484; 85025; 85379; 85610; 93005; 94640; 94760; 96374; 96375; 96376; 99291; A9540; G0378; J2920; 90471; 94644; 96365